=== PATIENT | male | born 1955 | race Caucasian/White ===

== ENCOUNTER 2016-10-27 17:18 | Emergency (ER) | payer OTHER, BC ==
[~2016-10-27] VITALS: Ht 175.3 cm; Wt 97.5 kg
[2016-10-27 17:33] VITALS: BP 187/113
[2016-10-27] MEDS ORDERED: LISINOPRIL10 MG PO (18:03)
[2016-10-27] MEDS ORDERED: HYDROCHLOROTHIA25 MG PO (18:03)
== END 2016-10-27 18:49 | disposition home or self-care (01) ==
LOC: EME 17:18
DX: S01.01XA Laceration without foreign body of scalp, initial encounter (principal); Z23 Encounter for immunization; Y99.0 Civilian activity done for income or pay; Y00.XXXA Assault by blunt object, initial encounter
CPT/HCPCS: 99281; 99283